=== PATIENT | female | born 1965 | race Caucasian/White ===

== ENCOUNTER 2025-06-25 14:45 | Inpatient (IN) | payer MEDICAID ==
[~2025-06-25] VITALS: Ht 167.6 cm; Wt 40.7 kg
[2025-06-25 16:05] LABS: GLUCOMETER DEV NAME(LOC) ERT.7; GLUCOSE,POINT OF CARE 95 MG/DL (70-110)
[2025-06-25] MEDS ORDERED: LORA1TAB25 PO (16:05)
[2025-06-25] MEDS ORDERED: THIA100T80 PO (16:05)
[2025-06-25] MEDS ORDERED: FURO20TA5 PO (16:05)
[2025-06-25] MEDS ORDERED: ACET-2247 PO (16:05)
[2025-06-25] MEDS ORDERED: MULT-412 PO (16:05)
[2025-06-25] MEDS ORDERED: MAGN-169 PO (16:05)
[2025-06-25] MEDS ORDERED: SENN-316 PO (16:05)
[2025-06-25] MEDS ORDERED: SPIR50TA27 PO (16:05)
[2025-06-25] MEDS ORDERED: PANT-31 PO (16:05)
[2025-06-25] MEDS ORDERED: FOLI-130 PO (16:05)
[2025-06-25] MEDS ORDERED: LIDO1ADH72 ID (16:05)
[2025-06-25 16:29] LABS: CALCIUM, TOTAL 8.5 mg/dL (8.8-10.5); CREATININE 0.76 mg/dL (0.60-1.30); GLOMERULAR FILTR. RATE CALC > 60 mL/min (>60); GLUCOSE,RANDOM 96 mg/dL (70-110); SODIUM SERUM 140 mmol/L (136-145); UREA NITROGEN, BLOOD 8 mg/dL (7-18)
[2025-06-25 16:30] LABS: PLATELET COUNT (AUTO) 96 K/uL (150-450); RED BLOOD CELL COUNT(AUTO) 3.63 MIL/uL (4.00-5.20); RED CELL DISTRIBUTION WIDTH 17.5 % (11.5-14.5); WHITE BLOOD COUNT (AUTO) 3.9 K/uL (4.5-11.0)
[2025-06-25 16:31] LABS: ALCOHOL, BLOOD (SERUM) < 3 mg/dL (0-10)
[2025-06-25 16:33] LABS: ASPARTATE AMINOTRANSFERASE 68 U/L (15-37); TOTAL PROTEIN, SERUM 7.8 g/dL (6.4-8.2)
[2025-06-25 16:39] LABS: TROPONIN I-HIGH SENSITIVITY 6 ng/L (<51)
[2025-06-25 17:09] LABS: PLATELET MORPHOLOGY COMMENT NOTE; RBC MORPHOLOGY COMMENT NORMAL RBC MORPH
[2025-06-25] MEDS: LACTULOSE 20 GM/30 ML SOLUTION UDCUP PO ONE (19:10)
[2025-06-25 22:38] VITALS: BP 98/74; PULSE 90; RESP 18; TEMP 97.3; O2SAT 98
[2025-06-25] MEDS: SENNOSIDES/DOCUSATE SODIUM 8.6-50 MG TABLET PO SCH (23:30)
[2025-06-25] MEDS: LACTULOSE 20 GM/30 ML SOLUTION UDCUP PO SCH (23:30)
[2025-06-25] MEDS: SPIRONOLACTONE 50 MG TABLET PO SCH (23:30)
[2025-06-25] MEDS ORDERED: ONDANSETRON HCL 4 MG/2 ML VIAL IVP PRN (23:30)
[2025-06-25] MEDS ORDERED: MAGNESIUM HYDROXIDE SUSPENSION 30 ML UDCUP PO PRN (23:30)
[2025-06-26 04:30] VITALS: BP 97/60; PULSE 81; RESP 17; TEMP 98; O2SAT 99
[2025-06-26 08:07] VITALS: BP 101/78; PULSE 80; RESP 18; TEMP 97.8; O2SAT 97
[2025-06-26 08:19] LABS: CALCIUM, TOTAL 8.2 mg/dL (8.8-10.5); CHOL/HDL RATIO 2.7 (3.9-5.7); CREATININE 0.62 mg/dL (0.60-1.30); GLOMERULAR FILTR. RATE CALC > 60 mL/min (>60); GLUCOSE,RANDOM 84 mg/dL (70-110); LDL CHOL (CALC.) 61 mg/dL (0-130); SODIUM SERUM 141 mmol/L (136-145); TOTAL PROTEIN, SERUM 6.7 g/dL (6.4-8.2)
[2025-06-26] MEDS ORDERED: [UNRECOGNIZED DRUG - OTHER] ID SCH (09:00)
[2025-06-26] MEDS: FOLIC ACID 1 MG TABLET PO SCH (09:06)
[2025-06-26] MEDS: THIAMINE 100 MG TABLET PO SCH (09:06)
[2025-06-26] MEDS: MULTIVITAMINS WITH MINERALS, THERAPEUTIC TABLET PO SCH (09:06)
[2025-06-26] MEDS: FUROSEMIDE 20 MG TABLET PO SCH (09:06)
[2025-06-26] MEDS: ENOXAPARIN SODIUM 40 MG/0.4 ML PF SYRINGE SQ SCH (09:08)
[2025-06-26 10:59] LABS: UREA NITROGEN, BLOOD 7 mg/dL (7-18)
[2025-06-26 11:15] LABS: ASPARTATE AMINOTRANSFERASE 62 U/L (15-37)
[2025-06-26 14:39] LABS: APPEARANCE,URINE CLEAR (CLEAR); GLUCOSE, URINE (UA) NEGATIVE (NEGATIVE); LEUKOCYTE ESTERASE ,URINE TRACE (NEGATIVE); NITRATE,URINE NEGATIVE (NEGATIVE); OCCULT BLOOD,URINE NEGATIVE (NEGATIVE); PH,URINE DRUG SCREEN 7.0 (5.0-8.0); SPECIFIC GRAVITIY, URINE 1.015 (1.003-1.030)
[2025-06-26 14:47] LABS: ALCOHOL, URINE DRUG SCREEN NEGATIVE (NEGATIVE); AMPHET/METH SCREEN,URINE NEGATIVE (NEGATIVE); BARBITURATE SCREEN, URINE POSITIVE (NEGATIVE); CANNABINOID SCREEN,URINE NEGATIVE (NEGATIVE); COCAINE SCREEN,URINE NEGATIVE (NEGATIVE); METHADONE SCREEN, URINE NEGATIVE (NEGATIVE)
[2025-06-26 14:49] LABS: SQUAMOUS EPITHELIAL CELL,UR Rare /LPF (None Seen)
[2025-06-26 15:47] VITALS: BP 103/68; PULSE 77; RESP 18; TEMP 97.7; O2SAT 99
[2025-06-26 20:15] VITALS: BP 118/51; PULSE 90; RESP 18; TEMP 97.9; O2SAT 99
[2025-06-27 04:05] VITALS: BP 101/73; PULSE 91; RESP 18; TEMP 98.1; O2SAT 99
[2025-06-27 06:58] LABS: PLATELET COUNT (AUTO) 92 K/uL (150-450); RED BLOOD CELL COUNT(AUTO) 3.73 MIL/uL (4.00-5.20); RED CELL DISTRIBUTION WIDTH 17.1 % (11.5-14.5); WHITE BLOOD COUNT (AUTO) 3.4 K/uL (4.5-11.0)
[2025-06-27 07:08] LABS: ASPARTATE AMINOTRANSFERASE 61 U/L (15-37); CALCIUM, TOTAL 8.6 mg/dL (8.8-10.5); CREATININE 0.65 mg/dL (0.60-1.30); GLOMERULAR FILTR. RATE CALC > 60 mL/min (>60); GLUCOSE,RANDOM 89 mg/dL (70-110); SODIUM SERUM 139 mmol/L (136-145); TOTAL PROTEIN, SERUM 7.4 g/dL (6.4-8.2); UREA NITROGEN, BLOOD 8 mg/dL (7-18)
[2025-06-27 08:58] VITALS: BP 105/71; PULSE 82; RESP 18; TEMP 97.6; O2SAT 100
[2025-06-27] MEDS ORDERED: PROMETHAZINE HCL 25 MG TABLET PO PRN (16:45)
[2025-06-27] MEDS ORDERED: MAGNESIUM HYDROXIDE SUSPENSION 30 ML UDCUP PO PRN (16:45)
[2025-06-27] MEDS ORDERED: LOPERAMIDE HCL 2 MG CAPSULE PO PRN (16:45)
[2025-06-27] MEDS ORDERED: GuaiFENesin/D-METHORPHAN [SUGAR-FREE] 200-20MG/10 ML SYRUP UDCUP PO PRN (16:45)
[2025-06-27] MEDS: LORazepam 2 MG/ML VIAL IM ONE (17:14)
[2025-06-27] MEDS: TUBERCULIN, PURIFIED PROTEIN DERIVATIVE 5 TU/0.1 ML SYRINGE ID ONE (18:26)
[2025-06-27] MEDS: CYANOCOBALAMIN 1,000 MCG/ML VIAL IM ONE (19:50)
[2025-06-27 20:00] VITALS: BP 105/73; PULSE 103; RESP 18; TEMP 98.1; O2SAT 100
[2025-06-27] MEDS: THIAMINE 100 MG TABLET PO SCH (21:03)
[2025-06-27] MEDS: ETHYL ALCOHOL 62% ANTISEPTIC NASAL SANITIZER 0.6 ML AMPUL NASAL SCH (21:03)
[2025-06-27] MEDS: MELATONIN 5 MG TABLET PO SCH (21:04)
[2025-06-28 05:00] VITALS: BP 103/66; PULSE 91; RESP 18; TEMP 98.2; O2SAT 100
[2025-06-28 06:23] LABS: CALCIUM, TOTAL 8.7 mg/dL (8.8-10.5); CREATININE 0.60 mg/dL (0.60-1.30); GLOMERULAR FILTR. RATE CALC > 60 mL/min (>60); GLUCOSE,RANDOM 93 mg/dL (70-110); SODIUM SERUM 138 mmol/L (136-145); UREA NITROGEN, BLOOD 8 mg/dL (7-18)
[2025-06-28 06:59] LABS: CHOL/HDL RATIO 3.0 (3.9-5.7); LDL CHOL (CALC.) 72.0 mg/dL (0-130)
[2025-06-28 08:30] VITALS: BP 93/73; PULSE 107; RESP 18; TEMP 97.9; O2SAT 97
[2025-06-28] MEDS ORDERED: FOLIC ACID 1 MG TABLET PO SCH (09:00)
[2025-06-28] MEDS ORDERED: MULTIVITAMINS WITH MINERALS, THERAPEUTIC TABLET PO SCH (09:00)
[2025-06-28] MEDS: NALTREXONE HCL 50 MG TABLET PO SCH (09:16)
[2025-06-28 15:02] VITALS: BP 117/86; PULSE 113; RESP 18; TEMP 97.3; O2SAT 100
[2025-06-28] MEDS: SODIUM PHOSPHATE,MONO-DIBASIC 133 ML ENEMA PR PRN (15:36)
[2025-06-28 19:40] VITALS: BP 104/76; PULSE 96; RESP 18; TEMP 98.2; O2SAT 98
[2025-06-29] VITALS (7 sets, daily range): BP systolic 99–112; BP diastolic 70–80; PULSE 81–96; RESP 18–19; TEMP 97.9–98.4; O2SAT 95–100
[2025-06-29 07:47] LABS: CALCIUM, TOTAL 8.7 mg/dL (8.8-10.5); CREATININE 0.63 mg/dL (0.60-1.30); GLOMERULAR FILTR. RATE CALC > 60 mL/min (>60); GLUCOSE,RANDOM 103 mg/dL (70-110); SODIUM SERUM 136 mmol/L (136-145); UREA NITROGEN, BLOOD 8 mg/dL (7-18)
[2025-06-30 04:06] VITALS: BP 116/82; PULSE 103; RESP 18; TEMP 97.9; O2SAT 98
[2025-06-30 07:42] VITALS: BP 111/74; PULSE 98; RESP 19; TEMP 97.9; O2SAT 97
[2025-06-30] MEDS: PANTOPRAZOLE SODIUM 40 MG DR TABLET PO PRN (09:33)
[2025-06-30 16:26] VITALS: BP 94/68; PULSE 103; RESP 18; TEMP 97.9; O2SAT 97
[2025-06-30 20:45] VITALS: BP 104/72; PULSE 98; RESP 18; TEMP 97.9; O2SAT 98
[2025-07-01 03:30] VITALS: BP 117/82; PULSE 102; RESP 18; TEMP 97.7; O2SAT 99
[2025-07-01 08:00] VITALS: BP 109/77; PULSE 88; RESP 18; TEMP 98.6; O2SAT 100
[2025-07-01 08:30] VITALS: BP 106/73; PULSE 86; RESP 18; TEMP 97.5; O2SAT 99
[2025-07-01 08:56] LABS: CALCIUM, TOTAL 9.3 mg/dL (8.8-10.5); CREATININE 0.75 mg/dL (0.60-1.30); GLOMERULAR FILTR. RATE CALC > 60 mL/min (>60); GLUCOSE,RANDOM 113 mg/dL (70-110); SODIUM SERUM 140 mmol/L (136-145); UREA NITROGEN, BLOOD 10 mg/dL (7-18)
[2025-07-01] MEDS: LACTULOSE 20 GM/30 ML SOLUTION UDCUP PO SCH (15:58)
[2025-07-01 17:10] VITALS: BP 112/84; PULSE 125; RESP 18; TEMP 97; O2SAT 99
[2025-07-01 20:00] VITALS: BP 119/85; PULSE 110; RESP 18; TEMP 98.2; O2SAT 98
[2025-07-01] MEDS: LORazepam 2 MG/ML VIAL IM ONE (21:44)
[2025-07-02 05:30] VITALS: BP 101/73; PULSE 103; RESP 18; TEMP 97.5; O2SAT 97
[2025-07-02 07:36] VITALS: BP 101/72; PULSE 96; RESP 18; TEMP 98.1; O2SAT 99
[2025-07-02 15:24] VITALS: BP 108/71; PULSE 98; RESP 20; TEMP 97.5; O2SAT 98
[2025-07-02] MEDS: LORazepam 2 MG/ML VIAL IM ONE (16:49)
[2025-07-02 19:23] VITALS: BP 115/83; PULSE 106; RESP 20; TEMP 97.8; O2SAT 99
[2025-07-03 00:45] VITALS: BP 102/79; PULSE 93; RESP 18; TEMP 97.9; O2SAT 97
[2025-07-03 04:31] VITALS: BP_SYST 101; BP_SYST 116; BP_DIAS 56; BP_DIAS 70; PULSE 89; PULSE 93; RESP 18; TEMP 98.1; TEMP 98.2; O2SAT 100; O2SAT 97
[2025-07-03 07:30] VITALS: BP 143/85; PULSE 111; RESP 18; TEMP 97.7; O2SAT 98
[2025-07-03 15:11] VITALS: BP 114/80; PULSE 108; RESP 18; TEMP 97.5; O2SAT 100
[2025-07-03] MEDS ORDERED: LORazepam 2 MG/ML VIAL IM ONE (19:00)
[2025-07-03 20:00] VITALS: BP 103/82; PULSE 115; RESP 18; TEMP 98.7; O2SAT 100
[2025-07-03] MEDS: ACETAMINOPHEN 325 MG TABLET PO PRN (23:10)
[2025-07-04 04:00] VITALS: BP 104/81; PULSE 110; RESP 18; TEMP 97.9; O2SAT 100
[2025-07-04 07:07] VITALS: BP 108/72; PULSE 89; RESP 18; TEMP 97.5; O2SAT 99
[2025-07-04 15:38] VITALS: BP 116/80; PULSE 108; RESP 18; TEMP 97.3; O2SAT 99
[2025-07-04 19:30] VITALS: BP 109/88; PULSE 115; RESP 20; TEMP 97.3; O2SAT 99
[2025-07-05 03:28] VITALS: BP 101/68; PULSE 115; RESP 18; TEMP 97.7; O2SAT 100
[2025-07-05] MEDS ORDERED: LORA-192 PO (11:47)
[2025-07-05] MEDS ORDERED: THIA100T80 PO (11:47)
[2025-07-05] MEDS ORDERED: PROM-223 PO (11:47)
[2025-07-05] MEDS ORDERED: QUET25TA36 PO ×2 (11:47)
[2025-07-05] MEDS ORDERED: MAG30ORA19 PO (11:47)
[2025-07-05] MEDS ORDERED: NALT50TA33 PO (11:47)
[2025-07-05] MEDS ORDERED: [UNRECOGNIZED DRUG - OTHER] PO (11:47)
[2025-07-05] MEDS ORDERED: LACT10SO10 PO (11:47)
[2025-07-05] MEDS ORDERED: MAGN-169 PO (11:47)
[2025-07-05] MEDS ORDERED: SODI133E17 PR (11:47)
[2025-07-05 12:17] VITALS: BP 96/65; PULSE 97; RESP 17; TEMP 97.5; O2SAT 99
[2025-07-05 13:30] VITALS: BP 100/59; PULSE 114; RESP 18; TEMP 97.3; O2SAT 98
[2025-07-05 15:49] VITALS: BP 101/66; PULSE 114; RESP 17; TEMP 97.3; O2SAT 99
[2025-07-05 19:30] VITALS: BP 96/73; PULSE 99; RESP 18; TEMP 97.5; O2SAT 99
[2025-07-05 20:43] VITALS: BP 110/73; PULSE 113; RESP 18; O2SAT 100
[2025-07-06 03:30] VITALS: BP 105/79; PULSE 112; RESP 18; TEMP 97.9; O2SAT 100
[2025-07-06 08:08] VITALS: BP 107/69; PULSE 95; RESP 18; TEMP 97; O2SAT 100
[2025-07-06 15:35] VITALS: BP 100/76; PULSE 112; RESP 18; TEMP 97; O2SAT 96
[2025-07-06 20:28] VITALS: BP 101/71; PULSE 107; RESP 18; TEMP 97.5; O2SAT 98
[2025-07-06] MEDS ORDERED: LORazepam 2 MG/ML VIAL IVP PRN (22:15)
[2025-07-07 05:50] VITALS: BP 108/80; PULSE 101; RESP 18; TEMP 97.9; O2SAT 96
[2025-07-07 06:53] LABS: PLATELET COUNT (AUTO) 86 K/uL (150-450); RED BLOOD CELL COUNT(AUTO) 3.64 MIL/uL (4.00-5.20); RED CELL DISTRIBUTION WIDTH 16.1 % (11.5-14.5); WHITE BLOOD COUNT (AUTO) 5.6 K/uL (4.5-11.0)
[2025-07-07 07:09] LABS: ASPARTATE AMINOTRANSFERASE 73 U/L (15-37); CALCIUM, TOTAL 8.7 mg/dL (8.8-10.5); CREATININE 0.68 mg/dL (0.60-1.30); GLOMERULAR FILTR. RATE CALC > 60 mL/min (>60); GLUCOSE,RANDOM 102 mg/dL (70-110); SODIUM SERUM 136 mmol/L (136-145); TOTAL PROTEIN, SERUM 7.2 g/dL (6.4-8.2); UREA NITROGEN, BLOOD 13 mg/dL (7-18)
[2025-07-07 07:28] LABS: RBC MORPHOLOGY COMMENT NORMAL RBC MORPH
[2025-07-07 08:05] VITALS: BP 93/60; PULSE 100; RESP 18; TEMP 97.3; O2SAT 100
[2025-07-07] MEDS ORDERED: POTASSIUM CHL 10 MEQ/WATER 50 ML IV PRN (15:15)
[2025-07-07 16:00] VITALS: BP 110/72; PULSE 110; RESP 17; TEMP 97.7; O2SAT 97
[2025-07-07] MEDS: POTASSIUM CHLORIDE 20 MEQ ER TABLET PO PRN (16:48)
[2025-07-07 19:45] VITALS: BP 101/69; PULSE 97; RESP 18; TEMP 97.3; O2SAT 99
[2025-07-07 23:18] LABS: CALCIUM, TOTAL 8.8 mg/dL (8.8-10.5); CREATININE 0.60 mg/dL (0.60-1.30); GLOMERULAR FILTR. RATE CALC > 60 mL/min (>60); GLUCOSE,RANDOM 102 mg/dL (70-110); SODIUM SERUM 138 mmol/L (136-145); UREA NITROGEN, BLOOD 14 mg/dL (7-18)
[2025-07-08 05:00] VITALS: BP 99/73; PULSE 106; RESP 18; TEMP 97.5; O2SAT 97
[2025-07-08 08:11] VITALS: BP 100/72; PULSE 100; RESP 18; TEMP 97.7; O2SAT 100
[2025-07-08 15:00] VITALS: BP 93/71; PULSE 101; RESP 12; TEMP 97.7; O2SAT 99
[2025-07-08 21:37] VITALS: BP 102/73; PULSE 95; RESP 18; TEMP 97.9; O2SAT 97
[2025-07-09 05:20] VITALS: BP 101/74; PULSE 106; RESP 20; TEMP 97.7; O2SAT 98
[2025-07-09 07:35] VITALS: BP 94/75; PULSE 115; RESP 20; TEMP 97.3; O2SAT 99
[2025-07-09 09:31] VITALS: BP 104/67; PULSE 105; RESP 18; TEMP 97.5; O2SAT 99
[2025-07-09 13:16] LABS: CALCIUM, TOTAL 9.1 mg/dL (8.8-10.5); CREATININE 0.52 mg/dL (0.60-1.30); GLOMERULAR FILTR. RATE CALC > 60 mL/min (>60); GLUCOSE,RANDOM 108 mg/dL (70-110); SODIUM SERUM 138 mmol/L (136-145); UREA NITROGEN, BLOOD 19 mg/dL (7-18)
[2025-07-09 13:21] LABS: ASPARTATE AMINOTRANSFERASE 56 U/L (15-37); TOTAL PROTEIN, SERUM 7.4 g/dL (6.4-8.2)
[2025-07-09 19:32] VITALS: BP 105/70; PULSE 108; RESP 18; TEMP 97; O2SAT 98
[2025-07-09] MEDS: MAG HYDROX/ALUMINUM HYD/SIMETH ES 30 ML SUSPENSION UDCUP PO PRN (22:19)
[2025-07-10 05:24] VITALS: BP 104/70; PULSE 106; RESP 18; TEMP 98.1; O2SAT 100
[2025-07-10 05:42] LABS: PLATELET COUNT (AUTO) 80 K/uL (150-450); RED BLOOD CELL COUNT(AUTO) 3.57 MIL/uL (4.00-5.20); RED CELL DISTRIBUTION WIDTH 15.9 % (11.5-14.5); WHITE BLOOD COUNT (AUTO) 5.1 K/uL (4.5-11.0)
[2025-07-10 05:57] LABS: CALCIUM, TOTAL 9.1 mg/dL (8.8-10.5); CREATININE 0.56 mg/dL (0.60-1.30); GLOMERULAR FILTR. RATE CALC > 60 mL/min (>60); GLUCOSE,RANDOM 111 mg/dL (70-110); SODIUM SERUM 142 mmol/L (136-145); UREA NITROGEN, BLOOD 19 mg/dL (7-18)
[2025-07-10] MEDS ORDERED: POTASSIUM CHL 10 MEQ/WATER 50 ML IV PRN (10:15)
[2025-07-10] MEDS: POTASSIUM CHLORIDE 10% 40 MEQ/30 ML LIQUID UDCUP PO PRN (10:37)
[2025-07-10 10:54] VITALS: BP 108/72; PULSE 113; RESP 18; TEMP 97.9; O2SAT 100
[2025-07-10 12:16] VITALS: BP 121/74; PULSE 112; RESP 17; TEMP 97.9; O2SAT 100
[2025-07-10 16:16] VITALS: BP 96/70; PULSE 109; RESP 18; TEMP 98.1; O2SAT 99
[2025-07-10 19:30] VITALS: BP 104/76; PULSE 80; RESP 18; TEMP 97.5; O2SAT 98
[2025-07-10 22:15] LABS: GLUCOMETER DEV NAME(LOC) 4E.2; GLUCOSE,POINT OF CARE 123 MG/DL (70-110)
[2025-07-11 04:09] VITALS: BP 110/89; PULSE 90; RESP 18; TEMP 97.8; O2SAT 97
[2025-07-11 08:00] VITALS: BP 118/78; PULSE 100; RESP 18; TEMP 97.9; O2SAT 100
[2025-07-11 11:25] LABS: COVID AG,FIA SOURCE NASAL SWAB
[2025-07-11 11:44] LABS: SARS-COV2 (COVID) ANTIGEN,FIA Negative (Negative)
[2025-07-11 15:25] VITALS: BP 106/80; PULSE 115; RESP 18; TEMP 98.4; O2SAT 100
[2025-07-11 22:49] VITALS: BP 107/80; PULSE 110; RESP 18; TEMP 97.9; O2SAT 99
[2025-07-12 04:05] VITALS: BP 101/81; PULSE 110; RESP 18; TEMP 97.8; O2SAT 99
[2025-07-12 08:21] VITALS: BP 104/57; PULSE 116; RESP 18; TEMP 97.7; O2SAT 97
[2025-07-12 16:49] VITALS: BP 99/70; PULSE 78; RESP 18; TEMP 97; O2SAT 98
[2025-07-12 20:09] VITALS: BP 105/67; PULSE 80; RESP 18; TEMP 97.6; O2SAT 97
[2025-07-13 04:30] VITALS: BP 110/67; PULSE 81; RESP 18; TEMP 97.8; O2SAT 97
[2025-07-13 07:10] VITALS: BP 116/85; PULSE 107; RESP 18; TEMP 98.4; O2SAT 98
[2025-07-13 20:16] VITALS: BP 107/76; PULSE 110; RESP 18; TEMP 98.4; O2SAT 100
[2025-07-14 04:10] VITALS: BP 100/77; PULSE 115; RESP 18; TEMP 98; O2SAT 97
[2025-07-14 07:28] VITALS: BP 104/69; PULSE 60; RESP 18; TEMP 97.5; O2SAT 98
[2025-07-14 07:44] VITALS: BP 107/79; PULSE 108; RESP 18; TEMP 97.3; O2SAT 98
[2025-07-14 08:13] VITALS: BP 107/79; PULSE 108; RESP 18; TEMP 97.3; O2SAT 97
[2025-07-14 15:18] LABS: PLATELET COUNT (AUTO) 77 K/uL (150-450); RED BLOOD CELL COUNT(AUTO) 3.94 MIL/uL (4.00-5.20); RED CELL DISTRIBUTION WIDTH 15.8 % (11.5-14.5); WHITE BLOOD COUNT (AUTO) 5.7 K/uL (4.5-11.0)
[2025-07-14 15:21] LABS: CALCIUM, TOTAL 9.5 mg/dL (8.8-10.5); CREATININE 0.85 mg/dL (0.60-1.30); GLOMERULAR FILTR. RATE CALC > 60 mL/min (>60); GLUCOSE,RANDOM 121 mg/dL (70-110); SODIUM SERUM 146 mmol/L (136-145); UREA NITROGEN, BLOOD 21 mg/dL (7-18)
[2025-07-14 15:46] VITALS: BP 113/74; PULSE 120; RESP 18; TEMP 97.3; O2SAT 98
[2025-07-14 16:03] LABS: PLATELET MORPHOLOGY COMMENT NOTE; RBC MORPHOLOGY COMMENT NORMAL RBC MORPH
[2025-07-14 19:29] VITALS: BP 121/81; PULSE 121; RESP 20; TEMP 98.2; O2SAT 100
[2025-07-15 03:33] VITALS: BP 111/78; PULSE 131; RESP 20; TEMP 97.9; O2SAT 98
[2025-07-15 04:18] LABS: PLATELET COUNT (AUTO) 74 K/uL (150-450); RED BLOOD CELL COUNT(AUTO) 3.73 MIL/uL (4.00-5.20); RED CELL DISTRIBUTION WIDTH 15.7 % (11.5-14.5); WHITE BLOOD COUNT (AUTO) 10.4 K/uL (4.5-11.0)
[2025-07-15 04:20] LABS: CALCIUM, TOTAL 9.3 mg/dL (8.8-10.5); CREATININE 0.64 mg/dL (0.60-1.30); GLOMERULAR FILTR. RATE CALC > 60 mL/min (>60); GLUCOSE,RANDOM 127 mg/dL (70-110); SODIUM SERUM 143 mmol/L (136-145); UREA NITROGEN, BLOOD 21 mg/dL (7-18)
[2025-07-15 04:25] LABS: ASPARTATE AMINOTRANSFERASE 67 U/L (15-37); TOTAL PROTEIN, SERUM 7.9 g/dL (6.4-8.2)
[2025-07-15 04:40] VITALS: PULSE 125; O2SAT 100
[2025-07-15 06:36] VITALS: PULSE 119; O2SAT 98
[2025-07-15 08:24] VITALS: BP 100/75; PULSE 120; RESP 18; TEMP 98.2; O2SAT 99
[2025-07-15 16:00] VITALS: BP 96/68; PULSE 113; RESP 20; TEMP 97.5; O2SAT 98
[2025-07-15 20:20] VITALS: BP 110/78; PULSE 122; RESP 18; TEMP 97.9; O2SAT 98
[2025-07-15] MEDS: GABAPENTIN 400 MG CAPSULE PO SCH (21:25)
[2025-07-16 04:00] VITALS: BP 115/80; PULSE 116; RESP 18; TEMP 97.3; O2SAT 100
[2025-07-16 08:27] VITALS: BP 105/86; PULSE 113; RESP 18; TEMP 97.9; O2SAT 96
[2025-07-16] MEDS: GABAPENTIN 300 MG CAPSULE PO PRN (09:24)
[2025-07-16 15:28] LABS: COVID AG,FIA SOURCE NASAL SWAB
[2025-07-16 15:53] LABS: SARS-COV2 (COVID) ANTIGEN,FIA Negative (Negative)
[2025-07-16 15:59] VITALS: BP 110/70; PULSE 111; RESP 18; TEMP 97.7; O2SAT 98
[2025-07-16 19:59] VITALS: BP 102/74; PULSE 102; RESP 18; TEMP 97.5; O2SAT 94
== END 2025-07-16 20:15 ==
LOC: EMS 14:45 → EDH 20:20 → 4E 22:24 → 6S 06-30 20:02 → 6N 07-16 10:07
PROVIDERS: ADMIT Family Medicine; ATTEND Family Medicine
DX: K76.82 Hepatic encephalopathy (principal); E44.0 Moderate protein-calorie malnutrition; E51.2 Wernicke's encephalopathy; K73.9 Chronic hepatitis, unspecified; G90.89 Other disorders of autonomic nervous system; K74.60 Unspecified cirrhosis of liver; K21.9 Gastro-esophageal reflux disease without esophagitis; I10 Essential (primary) hypertension; F29 Unspecified psychosis not due to a substance or known physiological condition; F03.918 Unspecified dementia, unspecified severity, with other behavioral disturbance; F10.20 Alcohol dependence, uncomplicated; J44.9 Chronic obstructive pulmonary disease, unspecified; Y90.9 Presence of alcohol in blood, level not specified; Z20.822 Contact with and (suspected) exposure to COVID-19; Z79.899 Other long term (current) drug therapy; Z63.9 Problem related to primary support group, unspecified; Z55.8 Other problems related to education and literacy; Z65.3 Problems related to other legal circumstances
CPT/HCPCS: 71045; 76700; 80048; 80053; 80061; 80076; 80307; 81001; 82140; 82962; 83036; 83735; 84132; 84439; 84443; 84484; 85025; 85610; 85730; 86592; 87081; 92610; 93005; 97112; 97116; 97163; 97166; 97530; 97535; 99285; G0378; G0480; J1200; J1630; J1650; J2060; J3420; 36415-L1; 36415-TC

== ENCOUNTER 2025-07-09 14:16 | Inpatient (IN) | payer MEDICAID ==
[~2025-07-09] VITALS: Ht 167.6 cm; Wt 40.7 kg
[~2025-07-09 14:16] MED LIST: ACET-2247 PO; FOLI-130 PO; FURO20TA5 PO; LACT10SO10 PO; LIDO1ADH72 ID; LORA-192 PO; LORA1TAB25 PO; MAG30ORA19 PO; MAGN-169 PO; MULT-412 PO; NALT50TA33 PO; PANT-31 PO; PROM-223 PO; QUET25TA36 PO; SENN-316 PO; SODI133E17 PR; SPIR50TA27 PO; THIA100T80 PO; [UNRECOGNIZED DRUG - OTHER] PO
[2025-07-16] MEDS ORDERED: ZOLPIDEM TARTRATE 10 MG TABLET PO PRN (15:30)
[2025-07-16 20:30] VITALS: BP 105/71; PULSE 100; RESP 16; TEMP 97.9; O2SAT 99
[2025-07-17 03:00] VITALS: BP 108/74; PULSE 99; RESP 17; TEMP 98.1; O2SAT 19
[2025-07-17] MEDS: MULTIVITAMINS, THERAPEUTIC TABLET PO SCH (09:39)
[2025-07-17] MEDS: FOLIC ACID 1 MG TABLET PO SCH (09:39)
[2025-07-17] MEDS: SENNOSIDES/DOCUSATE SODIUM 8.6-50 MG TABLET PO SCH (09:40)
[2025-07-17] MEDS: LACTULOSE 20 GM/30 ML SOLUTION UDCUP PO SCH (09:40)
[2025-07-17] MEDS: ETHYL ALCOHOL 62% ANTISEPTIC NASAL SANITIZER 0.6 ML AMPUL NASAL SCH (09:40)
[2025-07-17] MEDS: FUROSEMIDE 20 MG TABLET PO SCH (09:40)
[2025-07-17] MEDS: SPIRONOLACTONE 50 MG TABLET PO SCH (09:40)
[2025-07-17 10:07] VITALS: BP 116/82; PULSE 96; RESP 18; TEMP 97.5; O2SAT 98
[2025-07-17] MEDS ORDERED: PROMETHAZINE HCL 25 MG TABLET PO PRN (14:30)
[2025-07-17] MEDS ORDERED: GuaiFENesin/D-METHORPHAN [SUGAR-FREE] 200-20MG/10 ML SYRUP UDCUP PO PRN (14:30)
[2025-07-17] MEDS ORDERED: OLANZapine 5 MG RAPDIS TABLET PO PRN (14:30)
[2025-07-17] MEDS ORDERED: MAG HYDROX/ALUMINUM HYD/SIMETH ES 30 ML SUSPENSION UDCUP PO PRN (14:30)
[2025-07-17] MEDS ORDERED: ZOLPIDEM TARTRATE 10 MG TABLET PO PRN (14:30)
[2025-07-17] MEDS ORDERED: MAGNESIUM HYDROXIDE SUSPENSION 30 ML UDCUP PO PRN (14:30)
[2025-07-17] MEDS ORDERED: ACETAMINOPHEN 325 MG TABLET PO PRN (14:30)
[2025-07-17] MEDS ORDERED: LOPERAMIDE HCL 2 MG CAPSULE PO PRN (14:30)
[2025-07-17] MEDS: VALPROIC ACID 250 MG/5 ML SOLUTION UDCUP PO SCH (17:50)
[2025-07-17] MEDS: THIAMINE 100 MG TABLET PO SCH (17:50)
[2025-07-17] MEDS: PREGABALIN 25 MG CAPSULE PO SCH (17:51)
[2025-07-17] MEDS: LURASIDONE HCL 20 MG TABLET PO SCH (21:04)
[2025-07-17 23:23] VITALS: RESP 17; TEMP 97.7
[2025-07-18 09:44] VITALS: RESP 18
[2025-07-18] MEDS: FOLIC ACID 1 MG TABLET PO SCH (10:14)
[2025-07-18] MEDS: ACAMPROSATE CALCIUM 333 MG DR TABLET PO SCH (10:15)
[2025-07-18] MEDS: NALTREXONE HCL 50 MG TABLET PO SCH (10:17)
[2025-07-18 10:34] VITALS: BP 101/67; PULSE 98; RESP 18; TEMP 98
[2025-07-18] MEDS: MULTIVITAMINS WITH MINERALS, THERAPEUTIC TABLET PO SCH (10:34)
[2025-07-18 14:00] LABS: GLUCOMETER DEV NAME(LOC) 3EX.2; GLUCOSE,POINT OF CARE 110 MG/DL (70-110)
[2025-07-18 14:02] LABS: ASPARTATE AMINOTRANSFERASE 59.0 U/L (15-37); TOTAL PROTEIN, SERUM 7.7 g/dL (6.4-8.2)
[2025-07-18 14:42] LABS: ASPARTATE AMINOTRANSFERASE 53 U/L (15-37); CALCIUM, TOTAL 9.0 mg/dL (8.8-10.5); CHOL/HDL RATIO 3.4 (3.9-5.7); CREATININE 0.68 mg/dL (0.60-1.30); GLOMERULAR FILTR. RATE CALC > 60 mL/min (>60); GLUCOSE,RANDOM 100 mg/dL (70-110); LDL CHOL (CALC.) 52 mg/dL (0-130); SODIUM SERUM 145 mmol/L (136-145); TOTAL PROTEIN, SERUM 7.4 g/dL (6.4-8.2); UREA NITROGEN, BLOOD 23 mg/dL (7-18)
== END 2025-07-18 16:31 | DRG 750 ==
LOC: 3EI 07-16 21:10
PROVIDERS: ADMIT Psychiatry & Neurology Psychiatry; ATTEND Psychiatry & Neurology Psychiatry
PROC: GZHZZZZ Group Psychotherapy (ICD-10-PCS; principal; 2025-07-17)
PROC: GZ58ZZZ Individual Psychotherapy, Cognitive-Behavioral (ICD-10-PCS; 2025-07-17)
PROC: GZ56ZZZ Individual Psychotherapy, Supportive (ICD-10-PCS; 2025-07-18)
DX: F32.3 Major depressive disorder, single episode, severe with psychotic features (principal); E51.2 Wernicke's encephalopathy; F17.200 Nicotine dependence, unspecified, uncomplicated; J44.9 Chronic obstructive pulmonary disease, unspecified; Z55.9 Problems related to education and literacy, unspecified; Z59.9 Problem related to housing and economic circumstances, unspecified; Z63.9 Problem related to primary support group, unspecified; Z65.3 Problems related to other legal circumstances; F10.26 Alcohol dependence with alcohol-induced persisting amnestic disorder; Y90.8 Blood alcohol level of 240 mg/100 ml or more; Z79.899 Other long term (current) drug therapy
CPT/HCPCS: 80053; 80061; 82140; 82248; 82962; 83036; 84439; 84443; 87081